=== PATIENT | male | born 1965 | race Caucasian/White ===

== ENCOUNTER 2017-06-27 04:22 | Observation (INO) | payer BC ==
[2017-06-27 05:00] LABS: #Basophils 0.1 thou/uL (0.0-0.2); #Eosinphils 0.7 thou/uL (0.0-0.7); #Lymphocytes 1.9 thou/uL (1.20-3.40); #Monocytes 0.7 thou/uL (0.11-0.59); #Neutrophils 3.5 thou/uL (1.40-6.50); %Basophils 0.7 % (0.0-1.0); %Eosinophils 10.5 % (0.0-10.0); %Monocytes 9.7 % (0.0-10.0); Hemoglobin 15.9 g/dL (14.0-18.0); Mean Corpuscular HGB CONC 35.4 g/dL (32.0-36.0); Mean Corpuscular Hemoglobin 32.8 pg (27.0-31.0); Mean Corpuscular Volume 92.8 fl (80.0-94.0); Mean Platelet Volume 6.8 fL (7.4-10.4); Platelet Count 282 thou/uL (130-400); RBC Distribution Width 11.5 % (11.5-14.5); Red Blood Cell (RBC) Count 4.85 mill/uL (4.70-6.10); White Blood Cell (WBC) Count 6.9 thou/uL (4.8-10.8)
[2017-06-27 05:09] LABS: ALT (SGPT) 45 U/L (8-55); AST (SGOT) 30 U/L (5-34); Albumin 4.5 g/dL (3.5-5.0); Alkaline Phosphatase 102 U/L (40-150); Anion Gap 10 mmol/L (10-20); BUN (Urea Nitrogen) 18 mg/dL (8.4-25.7); Bilirubin, Total 0.9 mg/dL (0.2-1.2); CK (CPK) 244 U/L (30-200); Calc. Creatinine Clearance 0 mL/min (70-130); Calcium 9.4 mg/dL (7.8-10.44); Carbon Dioxide 27 mmol/L (22-29); Chloride 105 mmol/L (98-107); Estimated GFR-MDRD 67; Globulin 2.7 g/dL (2.4-3.5); Glucose 107 mg/dL (70-105); Potassium 4.1 mmol/L (3.5-5.1); Protein, Total 7.2 g/dL (6.0-8.3); Sodium 138 mmol/L (136-145)
[2017-06-27 05:14] LABS: CKMB 2.2 ng/mL (0-6.6); Troponin I Less than 0.010 ng/mL (< 0.028)
[2017-06-27] MEDS ORDERED: Ondansetron ODT 4 MG TAB SL PRN (07:00)
[2017-06-27] MEDS ORDERED: Ondansetron HCl/PF 4 MG/2 ML Vial IVP PRN (07:00)
[2017-06-27 07:11] VITALS: BMI 34.7
--- NOTE | 2017-06-27 08:01 | HP ---
HISTORY OF PRESENT ILLNESS: This is a 51-year-old white male with a history of coronary artery disea se, status post stent x2 in 2015, who presents with chest pain. The patient was recently seen in the office and was doing well. This morning at approximately 3 a.m. he awoke with gas pains and bloatin g. He took a nitroglycerin, but did not have relief. This episode reminds him of 2015 when he had a n acute [place]. Last time he had nausea, vomiting, and jaw pain. The patient did not want to wait for t his to begin so therefore was brought to the emergency room for evaluation. Upon arrival to the ER t he patient's chest pain had resolved completely. He is chest pain free at this time. He never had a ny nausea, vomiting or chest pain. In 09/2015, he underwent a cardiac catheterization which revealed multivessel coronary artery disease. He had a severe single vessel disease in which a stent x2 was placed by Dr. Cespedes. PAST MEDICAL HISTORY: Hypertension, hyperlipidemia, restless leg syndrome, sleep apnea, nephrolithia sis. PAST SURGICAL HISTORY: Include cardiac catheterization with stent x2 in 09/2015. Bilateral knee adrien geries, vasectomy. FAMILY HISTORY: Father with heart disease, hypertension. Mother with heart disease and a CVA. SOCIAL HISTORY: He is . He does not smoke. He drinks occasional alcohol. He works for [employer]. He is . He had 1 son which from a motor vehicle acc ident at the age of 21 while attending [employer]. MEDICATIONS: Aspirin 81 mg daily, vitamin D daily, Lipitor 40 daily, Coreg 3.125 one half p.o. b.i.d ., lisinopril 2.5 daily, Brilinta 90 b.i.d., clonazepam 2 at bedtime, nitroglycerin p.r.n. ALLERGIES: None. REVIEW OF SYSTEMS: As above. PHYSICAL EXAMINATION: VITAL SIGNS: Temperature 97.6, pulse 87, respirations 16, blood pressure 153/90. GENERAL: No acute distress at this time. HEENT: Clear. HEART: Regular rate and rhythm. LUNGS: Clear. ABDOMEN: Soft, nontender. EXTREMITIES: With no edema. LABORATORY AND X-RAY FINDINGS: White count 6.9, H&H 15 and 45. Electrolytes normal. Creatinine 1.1 5, glucose 107. Troponin I less than 0.010. Chest x-ray pending. ASSESSMENT: 1. Chest pain, rule out myocardial infarction. Cardiac enzymes are negative. However, the patient presents with symptoms very similar to his episode in 2016 requiring stent x2. 2. Hypertension. 3. Hyperlipidemia. 4. Obesity. 5. Restless leg syndrome. 6. Sleep apnea. PLAN: 1. Rule out myocardial infarction. 2. Consult Dr. Cespedes. 3. Echocardiogram. 4. The patient may require a repeat catheterization to reevaluate his vessels.
[2017-06-27 08:04] LABS: Troponin I Less than 0.010 ng/mL (< 0.028)
[2017-06-27] MEDS ORDERED: Enoxaparin Sodium 120 MG/0.8 ML SYRINGE SC SCH (08:30)
[2017-06-27] MEDS ORDERED: clonazePAM 1 MG TAB PO SCH ×2 (09:00→21:00)
--- NOTE | 2017-06-27 09:29 | RAD ---
PORTABLE CHEST 1 VIEW: Date: 06/27/17 Time: 0517 hours HISTORY: Chest pain. FINDINGS/IMPRESSION: Comparison made with exam of 10/05/15. The heart size is normal. The lungs are expanded without focal areas of consolidation, pneumothorax, or pleural effusions. IMPRESSION: No radiographic evidence of acute cardiopulmonary process. POS: [facility]
[2017-06-27] MEDS: Carvedilol 3.125 MG TAB PO SCH ×2 (13:25→20:19)
[2017-06-27] MEDS: Lisinopril 2.5 MG TAB PO SCH (13:25)
[2017-06-27] MEDS: Aspirin 325 MG TAB PO SCH (13:25)
--- NOTE | 2017-06-27 14:44 | CON ---
DATE OF CONSULTATION: 06/27/2017 DATE OF ADMISSION: 06/27/2017 CARDIOLOGY CONSULT NOTE Patient is on the observation floor. INDICATION FOR CONSULTATION: This is a 51-year-old gentleman with known coronary artery disease, und erwent angioplasty and stent placement in 2015. He presented early this morning after having chest p ain. Around 3:00 in the morning, he thought he had indigestion. He got up, he took some antacids th at did not relieve it. He then took nitroglycerin that also did not relieve it. He then started to go to the emergency room. Originally, his pain was about 6/10 at the time he arrived in the emergenc y room. His pain was almost completely resolved and he has had no further chest discomfort. His EKG is unremarkable. Cardiac enzymes are also unremarkable. He does have sinus bradycardia, but no ST segment changes to indicate ischemia. He did have a non-STEMI, I believe back in 09/2015, underwent angioplasty and stent placement x2 to the left circumflex. He had no significant myocardial damage a t that time, ejection fraction has remained stable. He was last seen in the office 05/16/2017. At t hat time, he was doing quite well and he had lost some weight after being on the weight loss program. Otherwise, he has had no particular problems. His cholesterol level had also been doing very well on medications. He had had no other complaints and today he has also no other complaints. PAST MEDICAL HISTORY: Significant for the coronary artery disease, angioplasty and stent placement. He had a 3.0 x 16 mm stent placed into the left circumflex and also a 3.0 x 12 mm stent placed in th e left circumflex, dilated up to 3.1 mm in diameter. He has a history of hypertension, sleep apnea, and nephrolithiasis. MEDICATIONS PRIOR TO ADMISSION: Included clonazepam, Lipitor 40 mg a day, Coreg 3.125 mg half a tabl et b.i.d., lisinopril 2.5 mg a day, nitroglycerin p.r.n., Brilinta, and aspirin 81 mg a day. SOCIAL HISTORY: He is . He has no alcohol or tobacco abuse. FAMILY HISTORY: Both his parents have had heart disease. His mother had a CVA. Father had history of hypertension. ALLERGIES: None. REVIEW OF SYSTEMS: Twelve point review of systems unremarkable except what was noted in the history of present illness. PHYSICAL EXAMINATION: GENERAL: Reveals a well-developed, well-nourished pleasant gentleman. VITAL SIGNS: Blood pressure 153/90, heart rate is 57 and is in sinus bradycardia, respiratory rate 1 6. He is afebrile. HEENT: Shows the head to be normocephalic, atraumatic. Carotid pulses are present. There were no b ruits. There is no JVD. The thyroid is not enlarged. Oral mucosa was pink and moist. CHEST: Clear with no rales, rhonchi or wheezing. CARDIOVASCULAR: Exam reveals a regular rhythm, somewhat bradycardic, but no significant murmurs, hea ves, thrills, bruits or rubs were noted. ABDOMEN: Soft and nontender. He is somewhat tympanic, but there were positive bowel sounds. No ten derness or masses. Femoral pulses are present. EXTREMITIES: Show no clubbing, cyanosis or edema. Pedal pulses are present. NEUROLOGIC: The patient is fully intact. He has normal strength and tone. SKIN: Warm and dry. LABORATORY DATA: Shows a creatinine of 1.15, potassium 4.1, sodium is 138, glucose was 107, MB was 2 .2. Troponins I's are negative. CK was 244 (the patient was outside yesterday doing some physical e xertion). EKG shows sinus bradycardia with no acute changes to indicate ischemia. IMPRESSION: 1. Chest pain, rule out myocardial infarction. There is no indication that patient suffered myocard ial infarction. He will undergo stress testing to rule out evidence for underlying ischemia. 2. Coronary artery disease. This appears to be relatively stable. We will determine this by stress testing. He has had an echocardiogram also performed in the office, which did not show any evidence of significant sequela after the myocardial infarction with the circumflex. His echocardiogram was in 02/2016, approximately 6 months after myocardial infarction and ejection fraction at that time was estimated at 55%-60% with no other significant abnormalities. As far as his coronary disease is con cerned, he has been on Brilinta since the stents were placed and this medication could be discontinue d and we can start him on aspirin alone or even aspirin and Plavix. Otherwise, he remains stable fro m a cardiac standpoint and further recommendations will depend on the results of the stress test, i ch will be performed today. If the stress test is abnormal, then he will need to undergo cardiac cat heterization. 3. Hypertension. This is under relatively good control at this time. We may need to adjust his med ications to lower the blood pressure to strive for systolic blood pressure of approximately 130 or le ss. 4. Sleep apnea. He will continue his present medications. 5. Hypercholesterolemia. He will also continue his medications.
[2017-06-27] MEDS ORDERED: Atorvastatin Calcium 40 MG TAB PO SCH (21:00)
[2017-06-28 08:11] VITALS: BP 125/85; TEMP 97.5
[2017-06-28] MEDS: Lisinopril 2.5 MG TAB PO SCH (10:00)
[2017-06-28] MEDS: Aspirin 325 MG TAB PO SCH (10:00)
[2017-06-28] MEDS: Carvedilol 3.125 MG TAB PO SCH (10:00)
--- NOTE | 2017-06-28 11:42 | NM ---
NUCLEAR MEDICINE CARDIAC STRESS TEST WITH EJECTION FRACTION: HISTORY: Chest pain, coronary artery disease, previous stent placement. COMPARISON: None. FINDINGS: Stress and rest was performed after the intravenous administration of 33 and 30 mCi Technetium 99m se stamibi intravenously, respectively. There is a small scar in the lateral wall. No ischemia. Normal wall motion. Ejection fraction is 6 0%. IMPRESSION: Small lateral wall scar. No evidence of ischemia. Ejection fraction is 60%. POS: [facility]
== END 2017-06-28 11:14 | disposition home or self-care (01) ==
LOC: ERS 04:22 → 2SW 06:18
PROVIDERS: ADMIT Family Medicine; ATTEND Family Medicine
DX: R07.9 Chest pain, unspecified (principal); I25.10 Atherosclerotic heart disease of native coronary artery without angina pectoris; I25.2 Old myocardial infarction; I10 Essential (primary) hypertension; E78.5 Hyperlipidemia, unspecified; G47.30 Sleep apnea, unspecified; G25.81 Restless legs syndrome; E78.00 Pure hypercholesterolemia, unspecified; E66.9 Obesity, unspecified; Z68.34 Body mass index [BMI] 34.0-34.9, adult; Z79.82 Long term (current) use of aspirin; Z79.02 Long term (current) use of antithrombotics/antiplatelets; Z79.899 Other long term (current) drug therapy; Z91.018 Allergy to other foods; Z95.5 Presence of coronary angioplasty implant and graft
CPT/HCPCS: 36415; 71045; 78452; 80053; 80061; 82550; 82553; 84484; 85025; 93005; 93017; 94760; A9500; G0378; J1650

== ENCOUNTER 2019-01-15 19:30 | Outpatient (CLI) | payer BC | END 2019-01-15 19:31 | disposition home or self-care (01) | LOC: SLEEPLAB 19:30 | PROVIDERS: ATTEND Family Medicine | DX: G47.33 Obstructive sleep apnea (adult) (pediatric) (principal); G25.81 Restless legs syndrome; G47.9 Sleep disorder, unspecified; F51.9 Sleep disorder not due to a substance or known physiological condition, unspecified; R40.0 Somnolence; E66.9 Obesity, unspecified; R06.83 Snoring; I10 Essential (primary) hypertension; R53.83 Other fatigue; Z68.35 Body mass index [BMI] 35.0-35.9, adult | CPT/HCPCS: 95811 ==

== ENCOUNTER 2020-07-31 11:36 | Inpatient (IN) | payer BC ==
[~2020-07-31 11:36] MED LIST: Iopamidol-370 76% 500 ML 1 ML ONE
[2020-07-31] MEDS ORDERED: Morphine 4 MG/ML VIAL ONE ×2 (14:14→15:36)
[2020-07-31] MEDS ORDERED: Ondansetron PF 4 MG/2 ML Vial ONE (14:14)
[2020-07-31 14:44] LABS: ALT (SGPT) 49 U/L (8-55); AST (SGOT) 32 U/L (5-34); Albumin 4.3 g/dL (3.5-5.0); Alkaline Phosphatase 138 U/L (40-110); Anion Gap 10 mmol/L (10-20); BUN (Urea Nitrogen) 24 mg/dL (8.4-25.7); Calc. Creatinine Clearance 0 mL/min (70-130); Calcium 9.2 mg/dL (7.8-10.44); Carbon Dioxide 27 mmol/L (22-29); Chloride 103 mmol/L (98-107); Globulin 2.8 g/dL (2.4-3.5); Glucose 86 mg/dL (70-105); Potassium 4.2 mmol/L (3.5-5.1); Protein, Total 7.1 g/dL (6.0-8.3); Sodium 136 mmol/L (136-145)
[2020-07-31 15:32] LABS: #Basophils 0.1 thou/uL (0.0-0.2); #Eosinphils 0.8 thou/uL (0.0-0.7); #Lymphocytes 1.8 thou/uL (1.20-3.40); #Monocytes 0.5 thou/uL (0.11-0.59); #Neutrophils 3.1 thou/uL (1.40-6.50); %Basophils 1.1 % (0.0-1.0); %Eosinophils 12.2 % (0.0-10.0); %Lymphocytes 29.1 % (21.0-51.0); %Monocytes 7.4 % (0.0-10.0); %Neutrophils 50.2 % (42.0-75.0); Hemoglobin 15.9 g/dL (14.0-18.0); Mean Corpuscular HGB CONC 34.9 g/dL (32.0-36.0); Mean Corpuscular Hemoglobin 32.6 pg (27.0-31.0); Mean Corpuscular Volume 93.5 fL (78.0-98.0); Platelet Count 249 thou/uL (130-400); RBC Distribution Width 12.1 % (11.5-14.5); Red Blood Cell (RBC) Count 4.87 mill/uL (4.70-6.10); White Blood Cell (WBC) Count 6.2 thou/uL (4.8-10.8)
[2020-07-31] MEDS ORDERED: Piperacillin/Tazobactam 3.375 GM VIAL ONE (15:37)
[2020-07-31 15:39] LABS: Bilirubin Negative (Negative); Blood, Urine Negative (Negative); Clarity Clear (Clear); Glucose, Urine (Dipstick) Normal (Negative); Ketone, Urine Negative (Negative); Leukocyte Negative Leu/uL (Negative); Nitrite Negative (Negative); Protein, Urine (Dipstick) Negative (Neg-Trace); Specific Gravity, Urine 1.029 (1.002-1.036); Urobilinogen Normal mg/dL (Less than 2); pH, Urine 6.5 (5.0-9.0)
[2020-07-31] MEDS ORDERED: Vancomycin 1 GM/200 ML BAG ONE ×2 (16:27→16:28)
[2020-07-31] MEDS ORDERED: Ondansetron PF 4 MG/2 ML Vial IVP PRN (16:58)
[2020-07-31] MEDS ORDERED: Vancomycin 1 GM in Premix Bag 1 BAG IVPB SCH (17:30)
[2020-07-31 18:44] VITALS: BMI 33.0
[2020-07-31] MEDS: HYDROcodone/Acetaminophen 5/325 mg Tablet PO PRN (19:33)
[2020-07-31] MEDS: Famotidine 20 MG TAB PO SCH (19:35)
[2020-07-31] MEDS: Ketorolac Tromethamine 30 MG/ML VIAL IVP PRN (20:57)
[2020-07-31] MEDS: Tetrahydrozoline 0.05% OPTH 15 ML BOT EA EYE PRN (20:59)
[2020-07-31] MEDS ORDERED: Linezolid 600 MG in Premix Bag 1 BAG IVPB SCH (21:00)
[2020-07-31] MEDS ORDERED: Atorvastatin Calcium 40 MG TAB PO SCH (22:00)
[2020-07-31] MEDS ORDERED: Carvedilol 3.125 MG TAB PO SCH (22:30)
[2020-07-31] MEDS ORDERED: clonazePAM 1 MG TAB PO SCH (22:30)
[2020-08-01] MEDS: HYDROcodone/Acetaminophen 5/325 mg Tablet PO PRN ×4 (00:27→21:03)
[2020-08-01] MEDS: Ketorolac Tromethamine 30 MG/ML VIAL IVP PRN ×2 (03:16→09:29)
[2020-08-01] MEDS ORDERED: Vancomycin 1.5 GRAM/300 ML BAG 1.5 GM in Premix Bag 1 BAG IVPB SCH (06:00)
[2020-08-01] MEDS ORDERED: Vancomycin 1 GM in Premix Bag 1 BAG IVPB SCH (06:00)
[2020-08-01 06:20] LABS: #Basophils 0.1 thou/uL (0.0-0.2); #Lymphocytes 1.9 thou/uL (1.20-3.40); #Monocytes 0.7 thou/uL (0.11-0.59); #Neutrophils 3.9 thou/uL (1.40-6.50); %Basophils 1.3 % (0.0-1.0); %Eosinophils 13.1 % (0.0-10.0); %Monocytes 9.3 % (0.0-10.0); %Neutrophils 51.3 % (42.0-75.0); Hemoglobin 14.2 g/dL (14.0-18.0); Mean Corpuscular HGB CONC 34.7 g/dL (32.0-36.0); Mean Corpuscular Hemoglobin 32.6 pg (27.0-31.0); Mean Corpuscular Volume 94.1 fL (78.0-98.0); Mean Platelet Volume 7.6 fL (7.4-10.4); Platelet Count 235 thou/uL (130-400); RBC Distribution Width 12.1 % (11.5-14.5); Red Blood Cell (RBC) Count 4.36 mill/uL (4.70-6.10); White Blood Cell (WBC) Count 7.6 thou/uL (4.8-10.8)
[2020-08-01 06:42] LABS: ALT (SGPT) 44 U/L (8-55); AST (SGOT) 26 U/L (5-34); Albumin 3.9 g/dL (3.5-5.0); Alkaline Phosphatase 118 U/L (40-110); Anion Gap 10 mmol/L (10-20); BUN (Urea Nitrogen) 23 mg/dL (8.4-25.7); Calc. Creatinine Clearance 119 mL/min (70-130); Calcium 8.7 mg/dL (7.8-10.44); Carbon Dioxide 26 mmol/L (22-29); Chloride 105 mmol/L (98-107); Globulin 2.3 g/dL (2.4-3.5); Glucose 95 mg/dL (70-105); Potassium 4.5 mmol/L (3.5-5.1); Protein, Total 6.2 g/dL (6.0-8.3); Sodium 136 mmol/L (136-145)
[2020-08-01] MEDS: Famotidine 20 MG TAB PO SCH ×2 (08:32→21:01)
[2020-08-01] MEDS: Aspirin 325 MG TAB PO SCH (08:34)
[2020-08-01] MEDS: Lisinopril 10 MG TAB PO SCH (08:35)
[2020-08-01] MEDS: Carvedilol 3.125 MG TAB PO SCH ×3 (08:36→23:53)
[2020-08-01] MEDS ORDERED: Enoxaparin Sodium 40 MG/0.4 ML SYRINGE SC SCH (09:00)
[2020-08-01] MEDS ORDERED: Aripiprazole 10 MG TAB PO SCH ×2 (09:00→21:00)
[2020-08-01] MEDS: Tetrahydrozoline 0.05% OPTH 15 ML BOT EA EYE PRN ×2 (12:10→22:35)
[2020-08-01] MEDS ORDERED: Loratadine 10 MG TAB PO SCH (14:00)
[2020-08-01] MEDS: Vancomycin HCl 1.5 GM in Sodium Chloride 0.9% 250 ML 300 ML IVPB SCH (17:00)
[2020-08-01] MEDS: Ketorolac Tromethamine 30 MG/ML VIAL IVP SCH ×2 (17:03→23:43)
[2020-08-01] MEDS ORDERED: diphenhydrAMINE 25 MG CAP PO PRN (20:13)
[2020-08-01] MEDS: clonazePAM 1 MG TAB PO SCH (21:01)
[2020-08-01] MEDS: Atorvastatin Calcium 40 MG TAB PO SCH (21:02)
[2020-08-02] MEDS: HYDROcodone/Acetaminophen 5/325 mg Tablet PO PRN ×3 (01:16→20:26)
[2020-08-02] MEDS: Ketorolac Tromethamine 30 MG/ML VIAL IVP SCH ×4 (05:18→23:34)
[2020-08-02] MEDS: Tetrahydrozoline 0.05% OPTH 15 ML BOT EA EYE PRN ×2 (05:21→23:35)
[2020-08-02] MEDS: Vancomycin HCl 1.5 GM in Sodium Chloride 0.9% 250 ML 300 ML IVPB SCH (05:25)
[2020-08-02] MEDS: Loratadine 10 MG TAB PO SCH (09:15)
[2020-08-02] MEDS: Aspirin 325 MG TAB PO SCH (09:15)
[2020-08-02] MEDS: Lisinopril 10 MG TAB PO SCH (09:15)
[2020-08-02] MEDS: Famotidine 20 MG TAB PO SCH ×2 (09:15→20:26)
[2020-08-02] MEDS: Fluticasone Propionate Nasal Spray 16 gm Bottle NASAL SCH (09:24)
[2020-08-02] MEDS: Carvedilol 3.125 MG TAB PO SCH ×2 (09:27→20:26)
[2020-08-02 17:41] LABS: Vancomycin, Trough 11.2 ug/mL
[2020-08-02] MEDS: VANCOMYCIN 1.75 GM/350 ML BAG 1.75 GM in Premix Bag 1 BAG IVPB SCH (18:14)
[2020-08-02] MEDS ORDERED: Artificial Tear Sol 15 ML BOT EA EYE PRN (20:00)
[2020-08-02] MEDS: Atorvastatin Calcium 40 MG TAB PO SCH (20:25)
[2020-08-02] MEDS: clonazePAM 1 MG TAB PO SCH (20:26)
[2020-08-03] MEDS: HYDROcodone/Acetaminophen 5/325 mg Tablet PO PRN ×4 (03:13→20:53)
[2020-08-03] MEDS: VANCOMYCIN 1.75 GM/350 ML BAG 1.75 GM in Premix Bag 1 BAG IVPB SCH ×2 (06:04→17:47)
[2020-08-03] MEDS: Ketorolac Tromethamine 30 MG/ML VIAL IVP SCH ×4 (06:04→23:26)
[2020-08-03] MEDS: Carvedilol 3.125 MG TAB PO SCH ×2 (08:31→23:30)
[2020-08-03] MEDS: Fluticasone Propionate Nasal Spray 16 gm Bottle NASAL SCH (08:32)
[2020-08-03] MEDS: Lisinopril 10 MG TAB PO SCH (08:32)
[2020-08-03] MEDS: Famotidine 20 MG TAB PO SCH ×2 (08:32→20:53)
[2020-08-03] MEDS: Loratadine 10 MG TAB PO SCH (08:32)
[2020-08-03] MEDS: Aspirin 325 MG TAB PO SCH (08:32)
[2020-08-03] MEDS: clonazePAM 1 MG TAB PO SCH (20:52)
[2020-08-03] MEDS: Atorvastatin Calcium 40 MG TAB PO SCH (20:52)
[2020-08-04] MEDS: HYDROcodone/Acetaminophen 5/325 mg Tablet PO PRN ×2 (03:04→09:44)
[2020-08-04 06:17] LABS: Vancomycin, Trough 14.6 ug/mL
[2020-08-04] MEDS: Ketorolac Tromethamine 30 MG/ML VIAL IVP SCH (06:52)
[2020-08-04] MEDS: VANCOMYCIN 1.75 GM/350 ML BAG 1.75 GM in Premix Bag 1 BAG IVPB SCH (06:53)
[2020-08-04 07:20] VITALS: TEMP 97.7
[2020-08-04] MEDS: Carvedilol 3.125 MG TAB PO SCH (09:44)
[2020-08-04] MEDS: Lisinopril 10 MG TAB PO SCH (09:44)
[2020-08-04] MEDS: Aspirin 325 MG TAB PO SCH (09:44)
[2020-08-04] MEDS: Loratadine 10 MG TAB PO SCH (09:45)
[2020-08-04] MEDS: Famotidine 20 MG TAB PO SCH (09:45)
[2020-08-04] MEDS: Fluticasone Propionate Nasal Spray 16 gm Bottle NASAL SCH (09:45)
[2020-08-04 09:46] VITALS: BP 131/77
== END 2020-08-04 10:44 | disposition home or self-care (01) | DRG 603 ==
LOC: ERS 11:36 → T4-A 16:07
PROVIDERS: ADMIT Emergency Medicine; ATTEND Family Medicine
DX: L03.211 Cellulitis of face (principal); Z20.822 Contact with and (suspected) exposure to COVID-19; D72.10 Eosinophilia, unspecified; I25.10 Atherosclerotic heart disease of native coronary artery without angina pectoris; I10 Essential (primary) hypertension; R00.1 Bradycardia, unspecified; G25.81 Restless legs syndrome; F32.9 Major depressive disorder, single episode, unspecified; E78.2 Mixed hyperlipidemia; I25.2 Old myocardial infarction; Z87.442 Personal history of urinary calculi; Z95.5 Presence of coronary angioplasty implant and graft; Z91.018 Allergy to other foods; Z79.899 Other long term (current) drug therapy; Z79.82 Long term (current) use of aspirin; Z82.49 Family history of ischemic heart disease and other diseases of the circulatory system
CPT/HCPCS: 36415; 70487; 80053; 80202; 81003; 83605; 85025; 85652; 86140; 87040; 93005; 93010; 96365; 96375; 96376; J1650; J1885; J2270; J2405; J2543; J3370; J7050; Q0163; Q9967

== ENCOUNTER 2020-12-07 15:51 | Outpatient (CLI) | payer BC ==
[2020-12-07 16:52] LABS: #Monocytes 1.1 10x3/uL (0.0-1.1); #Neutrophils 9.9 10x3/uL (1.5-8.4); %Basophils 0.2 % (0.0-2.0); %Eosinophils 0.1 % (0.0-6.0); %Lymphocytes 9.2 % (18.0-47.0); %Monocytes 9.1 % (0.0-10.0); %Neutrophils 81.1 % (40.0-75.0); Hemoglobin 13.7 g/dL (13.5-17.5); Mean Corpuscular HGB CONC 34.7 g/dL (32.0-36.0); Mean Corpuscular Hemoglobin 31.9 pg (27.0-33.0); Mean Corpuscular Volume 92.1 fl (81.2-95.1); Mean Platelet Volume 9.6 fl (7.4-10.4); Platelet Count 259 10x3/uL (150-450); RBC Distribution Width 12.7 % (11.5-14.5); Red Blood Cell (RBC) Count 4.29 10x6/uL (4.32-5.72); White Blood Cell (WBC) Count 12.2 10x3/uL (3.5-10.5)
[2020-12-07 17:00] LABS: ALT (SGPT) 75 U/L (8-55); AST (SGOT) 41 U/L (5-34); Albumin 4.4 g/dL (3.5-5.0); Alkaline Phosphatase 96 U/L (40-110); Anion Gap 14 mmol/L (10-20); BUN (Urea Nitrogen) 30 mg/dL (8.4-25.7); Bilirubin, Direct 0.6 mg/dL (0.1-0.3); Bilirubin, Total 1.3 mg/dL (0.2-1.2); Calc. Creatinine Clearance 0 mL/min (70-130); Calcium 9.9 mg/dL (7.8-10.44); Carbon Dioxide 27 mmol/L (22-29); Chloride 103 mmol/L (98-107); Globulin 2.6 g/dL (2.4-3.5); Glucose 103 mg/dL (70-105); Sodium 140 mmol/L (136-145)
[2020-12-07 17:48] LABS: SARS-CoV-2 NAA Rapid Test Not Detected (NotDetected)
== END 2020-12-07 15:52 | disposition home or self-care (01) ==
LOC: LABBT 15:51
PROVIDERS: ATTEND Surgery
DX: Z01.818 Encounter for other preprocedural examination (principal); Z20.822 Contact with and (suspected) exposure to COVID-19
CPT/HCPCS: 80053; 80076; 85025; U0002

== ENCOUNTER 2020-12-08 07:33 | Day surgery (SDC) | payer BC ==
[2020-12-07 15:03] VITALS: BMI 33.7
[2020-12-08] MEDS ORDERED: cefOXitin Sodium/Dextrose 2 GM/50 ML BAG ONE (08:24)
[2020-12-08] MEDS ORDERED: Iothalamate Meglumine 60% 50 ML VIAL FS ONE (10:20)
[2020-12-08] MEDS ORDERED: Lidocaine 1% w/Epinephrine 1:100K 30 ML VIAL ONE (10:20)
[2020-12-08] MEDS ORDERED: Bupivacaine 0.25% HCL 30 ML VIAL ONE (10:20)
[2020-12-08] MEDS ORDERED: Fentanyl 100 MCG/2 ML VIAL ONE ×2 (10:22)
[2020-12-08] MEDS ORDERED: Lidocaine 1% PF 5 ML VIAL ONE (10:40)
[2020-12-08] MEDS ORDERED: ePHEDrine 50 MG/ML VIAL ONE (10:40)
[2020-12-08] MEDS ORDERED: Ondansetron PF 4 MG/2 ML Vial ONE (10:40)
[2020-12-08] MEDS ORDERED: PROPOFOL 200 MG/20 ML VIAL ONE (10:40)
[2020-12-08] MEDS ORDERED: Rocuronium Bromide 10 MG/ML (10ML VIAL) ONE (10:40)
[2020-12-08] MEDS ORDERED: Glycopyrrolate 0.2 MG/ML 5 ML SYRINGE ONE (10:40)
[2020-12-08] MEDS ORDERED: Ketorolac Tromethamine 30 MG/ML VIAL ONE (10:40)
[2020-12-08] MEDS ORDERED: Dexamethasone 20 MG/5 ML VIAL ONE (10:40)
== END 2020-12-08 12:56 | disposition home or self-care (01) ==
LOC: SDC 07:33
PROVIDERS: ATTEND Surgery
PROC: BF101ZZ Fluoroscopy of Bile Ducts using Low Osmolar Contrast (ICD-10-PCS; principal; 2020-12-08)
PROC: 0FT44ZZ Resection of Gallbladder, Percutaneous Endoscopic Approach (ICD-10-PCS; principal; 2020-12-08)
DX: K80.12 Calculus of gallbladder with acute and chronic cholecystitis without obstruction (principal); I10 Essential (primary) hypertension; E78.2 Mixed hyperlipidemia; G25.81 Restless legs syndrome; G47.30 Sleep apnea, unspecified; I25.2 Old myocardial infarction; Z79.82 Long term (current) use of aspirin; Z79.899 Other long term (current) drug therapy; Z91.018 Allergy to other foods; Z95.5 Presence of coronary angioplasty implant and graft
CPT/HCPCS: 47532; 87070; 87205; 88304; J0694; J1100; J1610; J1885; J2405; J2704; J3010; J3490; Q9961; S0020

== ENCOUNTER 2023-04-29 08:14 | Outpatient (CLI) | payer BC | END 2023-04-29 08:15 | disposition home or self-care (01) | LOC: ULT 08:14 | PROVIDERS: ATTEND Physician Assistant Medical | DX: R79.89 Other specified abnormal findings of blood chemistry (principal); R79.0 Abnormal level of blood mineral | CPT/HCPCS: 76705 ==